=== PATIENT | female | born 1965 | race Caucasian/White ===

== ENCOUNTER 2019-02-03 17:50 | Emergency (ER) | payer MEDICAID ==
[~2019-02-03] VITALS: Ht 160 cm; Wt 61.2 kg
[2019-02-03 17:56] VITALS: BP_SYST 125
--- NOTE | 2019-02-03 20:15 | NUR ---
Patient left without being seen. No further treatment provided. ER MD aware
--- NOTE | 2019-02-03 20:15 | NUR ---
Pt called in, no answer
== END 2019-02-03 20:15 | disposition left against medical advice (07) ==
LOC: SED 17:50
DX: R51 Headache (principal); Z53.21 Procedure and treatment not carried out due to patient leaving prior to being seen by health care provider